=== PATIENT | male | born 1955 | race Caucasian/White ===

== ENCOUNTER 2019-07-28 17:41 | Inpatient (IN) | payer OTHER ==
[2019-07-28] VITALS (9 sets, daily range): BP systolic 100–114; BP diastolic 34–58
[~2019-07-28] VITALS: Ht 177.8 cm; Wt 59.5 kg
--- NOTE | ~2019-07-28 | HC ---
[facility] [place] [address] CONSULTATION Name: OSBALDO MADDOX [facility] Room #: 241-P ADM IN M.R.#: [id number] Admission: 07/28/19 Attend Phys: Reginald Lopez Discharge: Date of : 57 Report #: [id number] THIS REPORT FOR: //name// CC: KATHLEEN physician/PCP Reginald Lopez REASON FOR CONSULTATION: Acute kidney injury. REASON FOR PRESENTATION: Brought because of chest pain. HISTORY OF PRESENT ILLNESS: History is obtained from the medical chart. The patient is currently intubated and not able to provide me with the history. This is a 64-year-old with an acute ST elevation CA. The patient presented on the with chest pain and was immediately taken to the cardiac cath. Creatinine on presentation 1.5. The patient ended up having circumflex stent. Post-procedure, patient ran into what seems to be an acute kidney failure due to contrast-induced nephropathy. Cardiac echo revealed diastolic dysfunction. He also had moderate to severe mitral regurgitation with [id number] tricuspid regurgitation and mild pulmonary hypertension. There is also moderate to severe aortic regurgitation. The patient is not making any urine over the last 24 hours and I am consulted to manage his acute kidney injury. PAST MEDICAL HISTORY: Obtained from the medical chart, diverticulitis for an abscess. Post-diverticular drainage. ALLERGIES: None. SOCIAL HISTORY: Unobtainable given the patient's mental status. MEDICATIONS: Unobtainable given the patient's mental status. REVIEW OF SYSTEMS: Unobtainable given the patient's mental status. FAMILY HISTORY: Unobtainable given the patient's mental status. PHYSICAL EXAMINATION: GENERAL: He is intubated, agitated. VITAL SIGNS: Blood pressure is 105/44, temperature is 36.5. HEAD AND NECK: ET tube in place. CHEST: Decreased air entry bilaterally. CARDIOVASCULAR: No rub detected. ABDOMEN: Soft, nontender with no hepatosplenomegaly. LOWER EXTREMITIES: No edema. LABORATORY DATA: Chemistry from today revealed a BUN of 41, a creatinine of 3.7, sodium of 140, potassium of 4.5. White blood cell count of 15.5. [facility] [address] [place] [address] CONSULTATION Name: OSBALDO MADDOX [facility] Room #: 241-P [facility] IN .R.#: [id number] Admission: 07/28/19 Attend Phys: Reginald Lopez Discharge: Date of : 57 Report #: [id number] IMPRESSION AND PLAN: 1. Contrast-induced nephropathy. 2. Post-circumflex stent. 3. The patient is going into an acute tubular necrosis due to contrast exposure. We will attempt forceful diuresis. 4. Bolus with intravenous fluid. 5. Watch blood pressure. 6. Avoid nephrotoxins. 7. Neurological workup. 8. Cardiology managing his ongoing cardiac issues. By: 0930 1625 Kenneth Yoder MD /nt
[~2019-07-28 17:41] MED LIST: APAP650 PO; BENADRYL25 MG PO; DIFLUCAN200 MG PO; EXCEDRIN CAPLE1 EACH PO; INVANZ 1GM/NS 101 GM IV; NORCO 5-325 TA1 EACH PO
--- NOTE | 2019-07-28 19:19 | NUR ---
PATIENT'S PRE-ARRIVAL EKG AND HOSPITAL EKG SENT TO ICU IN THE TUBE SYSTEM
[2019-07-28 21:43] LABS: BE(vivo) -5.7 mmol/L (-2 to +3); HCO3 19.1 mmol/L (22.0-26.0); PCO2 35.7 mmHg (35.0-45.0); PO2 281.1 mmHg (80.0-100.0); pH 7.347 (7.360-7.450); sO2 99.6 % (92.0-98.0)
[2019-07-28 22:44] LABS: ABSOLUTE NEUTROPHILS 16.2 thou/uL (1.4-8.2); BASOPHILS 0.2 % (0.0-2.0); EOSINOPHILS 0.2 % (0.0-3.0); HEMATOCRIT 42.4 % (42.0-52.0); HEMOGLOBIN 14.1 gm/dL (14.0-18.0); LYMPHOCYTES 6.9 % (24.0-44.0); MCH 32.4 pg (26.0-34.0); MCHC 33.2 g/dL (28.0-37.0); MCV 97.5 fL (80.0-100.0); MONOCYTES 10.1 % (1.0-8.0); PLATELET COUNT 250 thou/uL (150-400); POLYS 82.6 % (36.0-66.0); RBC 4.35 mil/uL (4.50-6.00); RDW 13.2 % (10.5-14.5); WBC 19.7 thou/uL (4.0-11.0)
[2019-07-28 22:58] LABS: ALBUMIN 3.5 g/dL (3.4-5.0); CALCIUM 8.5 mg/dL (8.5-10.1); CREATININE 1.5 mg/dL (0.7-1.3); TOTAL BILIRUBIN 0.4 mg/dL (<0.1-1.0); TOTAL PROTEIN 6.4 g/dL (6.4-8.2)
[2019-07-29] VITALS (52 sets, daily range): BP systolic 106–154; BP diastolic 35–79
--- NOTE | 2019-07-29 03:00 | NUR ---
PT ARRIVED IN ICU FROM TRAFFIC SIGN SUPERVISOR AT 1950 YESTERDAY EVENING. PT ARRIVED INTUBATED AND ON VENT, PROPOFOL AND AMIO GTTS INFUSING, AND A RIGHT GROIN SITE WITH THE SHEATH IN PLACE. PULM CONSULTED FOR VENT MANAGMENT. INTEGRILIN GTT INITIATED. ART LINE HOOKED UP TO MONITOR BP. AVILA CATHETER PLACED. 500 CC NS BOLUS GIVEN. MAP HAS REMAINED BETWEEN 55-60 OVERNIGHT; DR. JULIAN AWARE. BOLUS AND LOWERING OF SEDATION HAS HAD NO EFFECT ON BP. RIGHT GROIN SITE IS C/D/I WITH NO HEMATOMA. WILL CONTINUE TO MONITOR.
[2019-07-29 05:14] LABS: PCO2 27.4 mmHg (35.0-45.0); PO2 108.8 mmHg (80.0-100.0); pH 7.411 (7.360-7.450); sO2 98.1 % (92.0-98.0)
[2019-07-29 06:18] LABS: HEMATOCRIT 39.8 % (42.0-52.0); HEMOGLOBIN 13.4 gm/dL (14.0-18.0); MCH 33.1 pg (26.0-34.0); MCHC 33.7 g/dL (28.0-37.0); MCV 98.2 fL (80.0-100.0); RBC 4.05 mil/uL (4.50-6.00); RDW 13.5 % (10.5-14.5); WBC 15.5 thou/uL (4.0-11.0)
[2019-07-29 06:37] LABS: ALBUMIN 3.3 g/dL (3.4-5.0); ANION GAP 17 mmol/L (7-16); BUN 24 mg/dL (7-18); CALCIUM 8.6 mg/dL (8.5-10.1); CHLORIDE 103 mmol/L (98-107); CHOLESTEROL 151 mg/dL (<200); CO2 18 mmol/L (21-32); CREATININE 2.1 mg/dL (0.7-1.3); GLUCOSE 118 mg/dL (74-106); HDL CHOLESTEROL 54 mg/dL (>40); LDL CHOLESTEROL 70 mg/dL (<100); POTASSIUM 4.1 mmol/L (3.5-5.1); SGPT 37 U/L (30-65); SODIUM 138 mmol/L (136-145); TC:HDL 2.8 Ratio (Not establshd); TOTAL BILIRUBIN 0.5 mg/dL (<0.1-1.0); TOTAL PROTEIN 6.2 g/dL (6.4-8.2); TRIGLYCERIDE 136 mg/dL (<150); VLDL 27 mg/dL (<40)
[2019-07-29 06:38] LABS: SERUM ASSESSMENT Clear
[2019-07-29 07:15] LABS: TROPONIN-I 109.75 ng/mL (<0.06)
[2019-07-29 07:25] LABS: SGOT 276 U/L (15-37)
--- NOTE | 2019-07-29 08:18 | 2DMMODE ---
[facility] [place] [address] 2 D/M-MODE ECHOCARDIOGRAM Name: VARSHAOSBALDO SILVESTRE [facility] Room #: 241-P ADM IN M.R.#: [id number] Admission: 07/28/19 Attend Phys: Reginald Michelle Discharge: Date of : 57 Report #: [id number] THIS REPORT FOR: //name// APPROVED REPORT Study performed: 07/29/2019 06:56:20 EXAM: Comprehensive 2D, Doppler, and color-flow Echocardiogram Patient Location: ICU Room #: 241 Status: routine BSA: 1.92 HR: 88 bpm BP: 119/37 mmHg Rhythm: NSR Other Information Study Quality: Good/low parasternal window Technically limited study due to patient on vent and thin body habitus. Indications STEMI. Status post emergent PCI. 2D Dimensions RVDd: 36.67 mm IVSd: 14.06 (7-11mm) LVOT Diam: 20.84 (18-24mm) LVDd: 48.31 mm PWd: 10.81 (7-11mm) LVDs: 33.95 (25-40mm) Aortic Root: 39.33 mm Volumes Left Atrial Volume (Systole) Single Plane 4CH: 48.90 mL Single Plane 2CH: 71.10 mL LA ESV Index: 33.00 mL/m2 Aortic Valve AoV Peak Demarco.: 2.04 m/s AO Peak Gr.: 16.57 mmHg LVOT Max P.94 mmHg LVOT Max V: 1.22 m/s SHERINE Vmax: 2.04 cm2 AI Vmax: 4.61 m/s AI [place]: 8.66 m/s2 AI PHT: 154.35 ms [facility] [address] [place] [address] 2 D/M-MODE ECHOCARDIOGRAM Name: VARSHAOSBALDO RIVERS [facility] Room #: [address] [place] [address] [place] [facility].#: [id number] Admission: 07/28/19 Attend Phys: Reginald Michelle Discharge: Date of : 57 Report #: [id number] Mitral Valve E/A Ratio: 2.7 MV Decel. Time: 94.74 ms MV E Max Demarco.: 1.24 m/s MV A Demarco.: 0.46 m/s MV PHT: 27.47 ms IVRT: 65.74 ms Pulmonary Valve PV Peak Demarco.: 1.18 m/s PV Peak Gr.: 5.61 mmHg Tricuspid Valve TR Peak Demarco.: 3.15 m/s RAP Estimate: 10.00 mmHg TR Peak Gr.: 40.00 mmHg PA Pressure: 50.00 mmHg Left Ventricle The left ventricle is normal size. Inferlateral and lateral wall hypokinesis. Mild basal septal hypertrophy is present. Left ventricular systolic function is normal. LVEF is 50-55%. Severe diastolic dysfunction is present (restrictive filling). Right Ventricle The right ventricle is normal size. The right ventricular systolic function is normal. Atria Left atrium is mildly dilated. The right atrium size is normal. Aortic Valve The aortic valve is mildly calcified, trleaflet Moderate to severe aortic regurgitation There is no aortic valvular stenosis. Mitral Valve Mild mitral annular calcification. Moderate to severe mitral regurgitation Tricuspid Valve The tricuspid valve is normal in structure. Mild to moderate tricuspid regurgitation. Estimated PAP is 50mmHg. Pulmonic Valve The pulmonary valve is normal in structure. Mild pulmonic regurgitation. [facility] [place] [address] 2 D/M-MODE ECHOCARDIOGRAM Name: VARSHAOSBALDO [facility] Room #: 241-P [facility] IN M.R.#: [id number] Admission: 07/28/19 Attend Phys: Reginald Michelle Discharge: Date of : 57 Report #: [id number] [place] Aortic root is mildly dilated at 3.9cm. Ascending aorta is not well visualized. IVC is borderline dilated and collapses <50% with inspiration. Pericardium There is no pericardial effusion. <Conclusion> Left ventricular systolic function is normal. Inferlateral and lateral wall hypokinesis. LVEF is 50-55%. Severe diastolic dysfunction The aortic valve is mildly calcified, trleaflet, no stenosis. Moderate to severe aortic regurgitation Mild mitral annular calcification. Moderate to severe mitral regurgitation Mild to moderate tricuspid regurgitation. Estimated pulmonary artery pressure of 50mmHg. There is no pericardial effusion. <ELECTRONICALLY SIGNED> By: Jacob Ospina MD, FACC 07/29/19817 7 7 Jacob Ospina MD, FACC /INF
--- NOTE | 2019-07-29 08:36 | EKG ---
[address] [address] ELECTROCARDIOGRAM REPORT Name: VARSHAOSBALDO SALAZARWELL [facility] Room #: 241-P ADM IN M.R.#: [id number] Admission: 07/28/19 Attend Phys: Reginald Lopez Discharge: Date of : 57 Report #: [id number] THIS REPORT FOR: //name// [facility] ED Test Date: 2019-07-28 Test Time: 17:49:50 Pat Name: OSBALDO MADDOX Department: Room: 241 P Gender: M Manufacturing Director: NIRAV : 1955 Requested By: Yas Mejia Order Number: [id number] MD: Sharif Yu Measurements Intervals [place] Rate: 70 P: CA: QRS: -33 QRSD: 93 T: 264 QT: 426 QTc: 460 Interpretive Statements Acute inferoposterior STEMI. Electronically Signed On 07-29-2019 8:36:09 SECURITY FLEX OFFICER by Sharif Yu [email or web address] <ELECTRONICALLY SIGNED> By: Sharif Yu MD 07/29/19 0836 1749 1749 Sharif Yu MD /NIKHIL
--- NOTE | 2019-07-29 10:05 | NUR ---
0950- SEDATION OFF, CPAP TRIAL STARTED BY DR. JULIAN
--- NOTE | 2019-07-29 12:22 | EKG ---
[address] [place] [address] ELECTROCARDIOGRAM REPORT Name: OSBALDO MADDOX [facility] Room #: 241-P ADM IN M.R.#: [id number] Admission: 07/28/19 Attend Phys: Reginald Loepz Discharge: Date of : 57 Report #: [id number] THIS REPORT FOR: //name// [facility] Test Date: 2019-07-29 Test Time: 09:10:07 Pat Name: OSBALDO MADDOX Department: Room: 241 P Gender: M Electrical Line Worker: Rosalba TIRADO : 1955 Requested By: Jessika Rivas Order Number: [id number] MD: Sharif Yu Measurements Intervals [place] Rate: 89 P: 72 MA: 171 QRS: -15 QRSD: 98 T: 77 QT: 422 QTc: 514 Interpretive Statements Sinus rhythm Borderline left axis deviation Abnormal R-wave progression, early transition Prolonged QT interval Compared to ECG 07/28/2019 17:49:50 Prolonged QT interval now present Electronically Signed On 07-29-2019 12:22:27 REWINDER OPERATOR by Sharif Yu [email or web address] <ELECTRONICALLY SIGNED> By: Sharif Yu MD 07/29/19 1222 0910 0910 Sharif Yu MD /EPI
--- NOTE | 2019-07-29 12:37 | NUR ---
CALL PLACED FOR SISTER KAMRAN MADDOX, PT'S RIPENING ROOM OPERATOR/NEXT OF KIN. PHONE NUMBER LISTED IS NOT A WORKING NUMBER.
--- NOTE | 2019-07-29 16:24 | NUR ---
Chart reviewed and case discussed with the care team. Pt is currently in ICU on the vent. He was found down in his yard after calling 911. He was emergently intubated and taken to the label sewer. Pt was stented and is being followed by cardiology for IN. Neuro consult for possible CVA. The pt was last here in 2013. He was uninsured at that time and outpt iv atb were arranged. 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 That number has been disconnected. A neighbor called earlier and may be in to see him later today. Manager Business Continuity spoke with security and will review his belongings for any possible emergency contacts. The pt's chart indicates he had a recent drain placement for diverticulitus. We will see if his neighbor comes in and can provide any contact information. The pt is and lives alone per his chart. [employer] referral initiated. Will have them check [place]. Will follow.
--- NOTE | 2019-07-29 18:10 | NUR ---
NURSE ASSUMED CARE OF PATIENT AT 1300. SHEATH WAS REMOVED TODAY WITH HEMOSTASIS AT 1340. NO HEMATOMA OR BLEEDING NOTED, JUST SOME MINIMAL BRUISING. NURSE TALKED WITH DR. TORRES ABOUT URINE OUTPUT. PATIENT WAS GIVEN LASIX THIS MORNING FOR URINE OUTPUT LESS THAN 30ML/KG/HOUR. URINE OUTPUT THE LAST FEW HOURS HAVE BEEN ZERO. DR. TORRES WAS INFORMED AND ANOTHER ORDER FOR LASIX WAS GIVEN. NURSING STAFF TO CONTINUE TO MONITOR URINE OUTPUT, VITAL SIGNS, NEURO STATUS. PATIENT, DURING SHEATH REMOVAL, WAS KICKING RIGHT LEG, THRASHING AROUND BED WITH RIGHT SIDED MOVEMENT, WHICH MADE REMOVAL OF THE SHEATH DIFFICULT. PROPOFOL RATE INCREASED FOR PATIENT MANAGEMENT WHILE PULLING SHEATH. RASS SCORE OBTAINED WITH PROPOFOL, NURSE TITRATING PER RASS SCORE. PLAN OF CARE IS TO CONTINUE TO MONITOR PATIENT STATUS Q2-4 HOURS, AND REDRAW LABS IN THE MORNING FOR CLOSE MONITORING OF RENAL FUNCTION.
--- NOTE | 2019-07-29 20:09 | NUR ---
PATIENT NEIGHBOR IN TO SEE PATIENT. STATE PATIENT IS ESTRANGED FROM SISTER ON FILE. HASN'T SPOKEN IN OVER 1 YEARS. STATES HE IS BENEFICIARY ON [employer], WILL CONTACT GUIDANCE SECRETARY IN AM TO SEE IF HE ALSO HAS DPOA FOR PATIENT. CONTACT INFORMATION FOR NICOLA OBTAINED, WILL PASS ON TO CASE MANAGEMEN. FLORENTINO STATES UNDERSTANDING THAT WE CAN' LEGALLY GIVE HIM PATIENT INFORMATION AT THIS TIME. FLORENTINO TO FOLLOW UP IN AM [facility] GUIDANCE SECRETARY AND CASE MANAGEMENT.
[2019-07-30] VITALS (25 sets, daily range): BP systolic 94–121; BP diastolic 42–64
[2019-07-30 05:12] LABS: ALBUMIN 3.3 g/dL (3.4-5.0); CALCIUM 8.8 mg/dL (8.5-10.1); PHOSPHORUS 7.1 mg/dL (2.5-4.9); POTASSIUM 4.5 mmol/L (3.5-5.1); TOTAL BILIRUBIN 0.3 mg/dL (<0.1-1.0); TOTAL PROTEIN 6.3 g/dL (6.4-8.2)
--- NOTE | 2019-07-30 05:26 | NUR ---
ASSUMED CARE OF PATIENT FROM ER. FIRST UNIT OF BLOOD TRANSFUSING. FUROSEMIDE GIVEN, THEN 2ND UNIT HUNG. ADMISSION COMPLETE, PICTURES TAKEN OF GLUTEAL FOLD AND LOWER EXTREMITIES. ICU INFORMATION GIVEN TO SPOUSE. POC GOALS ESTABLISHED. WILL CONTINUE TO MONITOR.
[2019-07-30 05:36] LABS: CREATININE 3.7 mg/dL (0.7-1.3)
--- NOTE | 2019-07-30 08:02 | EKG ---
[address] [place] [address] ELECTROCARDIOGRAM REPORT Name: VARSHAOSBALDO RIVERS [facility] Room #: 241-P ADM IN M.R.#: [id number] Admission: 07/28/19 Attend Phys: Reginald Lopez Discharge: Date of : 57 Report #: [id number] THIS REPORT FOR: //name// [facility] Test Date: 2019-07-30 Test Time: 07:18:24 Pat Name: OSBALDO MADDOX Department: Room: 241 P Gender: M Policy Specialist: Smith WASHBURN : 1955 Requested By: Jessika Rivas Order Number: [id number] MD: Jacob Ospina Measurements Intervals [place] Rate: 89 P: 64 DE: 169 QRS: -12 QRSD: 99 T: 75 QT: 452 QTc: 551 Interpretive Statements Sinus rhythm Prolonged QT interval Compared to ECG 07/29/2019 09:10:07 No significant changes Electronically Signed On 07-30-2019 8:02:29 LOAN ORIGINATOR by Jacob Ospina [email or web address] <ELECTRONICALLY SIGNED> By: Jacob Ospina MD, [facility] 07/30/19801 7 7 Jacob Ospina MD, [facility] /EPI
--- NOTE | 2019-07-30 10:31 | NUR ---
Nutrition: Pt NPO x 2 days on vent. REC start tube feeds of Vital HP to reach 55 mL/hr with current sedation needs. Renal managing fluid status.
--- NOTE | 2019-07-30 14:40 | NUR ---
VASCULAR ACCESS TEAM ORDER FOR CENTRAL LINE PLACEMENT. ORDER VERIFIED. CONSENT SIGNED BY MD FOR MEDICAL NECESSITY. R IJ WIDELY PATENT ON ULTRASOUND. PATIENT PREPPED AND DRAPED IN NORMAL STERILE FASHION. 3ML OF 1% LIDOCAINE GIVEN SUB Q. VEIN CANNULATED WITH ONE ATTEMPT. GUIDEWIRE ADVANCED EASILY. VEIN DILATED. GUIDWIRE REMOVED INTACT. 25CM CATHETER INSERTED TO 17CM INTERNAL AND 8CM EXTERNAL. ALL LUMENS FLUSH AND DRAW EASILY. CXR FOR PLACEMENT CONFIRMATION. LINE RELEASED FOR IMMEDIATE USE TO RN.
--- NOTE | 2019-07-30 16:00 | NUR ---
PT USING ACCESSORY MUSLCLES TO BREATH, DIPRIVAN INCREASED. SAT 97% RR 24. NOTIFIED. NO NEW ORDERS.
--- NOTE | 2019-07-30 16:50 | NUR ---
Case discussed with the care team. Pt remains on a vent in the ICU. Prognosis is guarded. Pt's neighbor/friend Lefty Taylor was here today along with friends Alethea Yuan and Ann Norman. They report that the pt had been estranged from his sister Maya and they are attempting to contact her on facebook as well as with phone number [phone]. They have left a message. Safety Council Director left a message as well for her to contact the hospital. Another neighbor came in and notes that she lived by him in [place], [place] until he sold his home and moved to [facility] near Lefty a few months ago. They report he had to file [employer] d/t all of his medical bills. He had a colon resection at [facility] in 2016 and he was diagnosed with stg iv colon cancer. They note he is and has two dogs. They are all helping care for his animals. Lefty has looked for any living will, dpoa or advanced directive paperwork and he has not found any legal paperwork. Alethea and Ann indicate that the pt stayed with them over the summer while looking for another place to live. They are supportive and willing to help if they can. Support provided. They are aware they do not have access to any PHI but can tell he is very ill. They will let us know if they get a response from his sister. They believe her address is [address] [place] [address] [address], [place] [address]. Lefty Taylor [phone],Alethea Yuan [phone], and Ann Norman [phone] would like their information provided to the pt's sister if she calls back. Release of info request sent to [facility]. They will send over medical records but do not believe they have any legal documents on file. Will follow.
--- NOTE | 2019-07-30 17:00 | NUR ---
SPOKE WITH MD ABILIO REVIEWED CT SCAN. NO NEW ORDERS.
--- NOTE | 2019-07-30 17:59 | NUR ---
DR. MARCOS CALLED. UPDATE GIVEN. REPORTED URINE OUTPUT. ORDERS GIVEN. WILL REBOLUS WITH 1LNS.
[2019-07-30 18:33] LABS: URINE BLOOD TRACE (Negative); URINE CLARITY CLEAR; URINE COLOR YELLOW; URINE GLUCOSE-RANDOM* NEGATIVE (Negative); URINE KETONES NEGATIVE (Negative); URINE NITRITE-REFLEX NEGATIVE (Negative); URINE PROTEIN (DIPSTICK) 1+ (Negative); URINE SPECIFIC GRAVITY 1.025 (1.005-1.035); URINE UROBILINOGEN 0.2 E.U./dl (0.2-1.0)
[2019-07-30 18:34] LABS: ICTOTEST (BILI CONFIRMATORY) Negative (Negative); URINE BILIRUBIN NEGATIVE (Negative); URINE LEUKOCYTES-REFLEX 1+ (Negative)
[2019-07-30 18:42] LABS: SQUAMOUS None Seen /LPF (0-3)
[2019-07-30 18:43] LABS: CASTS None Seen /LPF (None Seen); CRYSTALS None Seen /LPF (None Seen); URINE RBC 0-2 Rare /HPF (0-2)
[2019-07-31] VITALS (8 sets, daily range): BP systolic 116–152; BP diastolic 45–60
[2019-07-31 05:26] LABS: ABSOLUTE NEUTROPHILS 15.2 thou/uL (1.4-8.2); BASOPHILS 0.2 % (0.0-2.0); EOSINOPHILS 0.1 % (0.0-3.0); HEMATOCRIT 36.7 % (42.0-52.0); HEMOGLOBIN 12.1 gm/dL (14.0-18.0); LYMPHOCYTES 4.3 % (24.0-44.0); MCH 32.6 pg (26.0-34.0); MCHC 32.9 g/dL (28.0-37.0); MCV 99.2 fL (80.0-100.0); MONOCYTES 10.8 % (1.0-8.0); PLATELET COUNT 167 thou/uL (150-400); POLYS 84.6 % (36.0-66.0); RDW 13.5 % (10.5-14.5); WBC 17.9 thou/uL (4.0-11.0)
[2019-07-31 05:45] LABS: ALBUMIN 2.7 g/dL (3.4-5.0); CALCIUM 8.6 mg/dL (8.5-10.1); MAGNESIUM 2.1 mg/dL (1.8-2.4); PHOSPHORUS 8.4 mg/dL (2.5-4.9); POTASSIUM 4.2 mmol/L (3.5-5.1)
[2019-07-31 05:49] LABS: CREATININE 4.7 mg/dL (0.7-1.3)
--- NOTE | 2019-07-31 07:05 | NUR ---
CHECKED ON PT DURING REPORT PT EYES WERE ROLLED BACKWARD. FRANSISCO DOWN TO 50S. NO PULSE CODE BLUE CALLED. PT AT 0722. AYSTOLE, NO HEART TONES OR SPONTANEOUS RESP. PUPILS FIXED AND DIALATED. POST MORTEM CARE DONE. PT FRIEND ACCIDENTALLY TOOK PT PHONE HOME BUT HE IS ONLY LOVED ONE WE CAN REACH FOR PT. PT POSSIBLE EYE DONOR. SALINE PLACED IN BOTH EYES. SECURITY HAS PT BELONGINGS. SECURITY INSTRUCTED NOT TO RELEASE BODY UNTIL THEY HEAR FROM [facility]. FRIEND TO CALL BACK WITH HOME.
== END 2019-07-31 07:22 | DRG 246 ==
LOC: ER 17:41 → ICU 18:00 → TBA 18:00 → ICU 18:27
PROVIDERS: Hospitalist; Nurse Practitioner; Nurse Practitioner Adult Health; Pediatrics; ADMIT Internal Medicine
DX: I21.3 ST elevation (STEMI) myocardial infarction of unspecified site (principal); N17.0 Acute kidney failure with tubular necrosis; I63.9 Cerebral infarction, unspecified; J96.01 Acute respiratory failure with hypoxia; I47.2 Ventricular tachycardia; G81.94 Hemiplegia, unspecified affecting left nondominant side; E87.2 Acidosis; N14.1 Nephropathy induced by other drugs, medicaments and biological substances; T50.8X5A Adverse effect of diagnostic agents, initial encounter; R00.1 Bradycardia, unspecified; Y92.230 Patient room in hospital as the place of occurrence of the external cause; I12.9 Hypertensive chronic kidney disease with stage 1 through stage 4 chronic kidney disease, or unspecified chronic kidney disease; I27.20 Pulmonary hypertension, unspecified; I08.3 Combined rheumatic disorders of mitral, aortic and tricuspid valves; N18.9 Chronic kidney disease, unspecified; Z60.2 Problems related to living alone; K57.90 Diverticulosis of intestine, part unspecified, without perforation or abscess without bleeding; I46.9 Cardiac arrest, cause unspecified
CPT/HCPCS: 10078